=== PATIENT | female | born 1995 | race Caucasian/White ===

== ENCOUNTER 2018-09-11 13:54 | Emergency (ER) | payer OTHER ==
[~2018-09-11] VITALS: Ht 157.5 cm; Wt 102.0 kg
[2018-09-11] MEDS ORDERED: NAPROSYN500 MG PO (15:00)
[2018-09-11] MEDS ORDERED: FLEXERIL PO (15:00)
[2018-09-11 16:44] VITALS: BP 158/83
== END 2018-09-11 16:45 | disposition home or self-care (01) ==
LOC: M.ERS 13:54
DX: S16.1XXA Strain of muscle, fascia and tendon at neck level, initial encounter (principal); S40.012A Contusion of left shoulder, initial encounter; Z91.030 Bee allergy status; V89.2XXA Person injured in unspecified motor-vehicle accident, traffic, initial encounter; Y93.89 Activity, other specified; Y92.89 Other specified places as the place of occurrence of the external cause; Y99.8 Other external cause status